=== PATIENT | male | born 1940 | race Caucasian/White ===

== ENCOUNTER 2021-06-24 12:44 | Emergency (ER) | payer MEDICARE, SELFPAY ==
[2021-06-24 12:45] VITALS: BP 165/77; PULSE 101; RESP 16; TEMP 36.6; O2SAT 96; BMI 27.9
--- NOTE | 2021-06-24 13:02 | EDS_ITS ---
HPI History of Present Illness Chief Complaint: Constipation Informant: patient Narrative Narrative: 80-year-old male presenting to the emergency department with a chief complaint of constipation. Patient states its been 2 months since his last bowel movement but then he said maybe a week and a half he is also said 4 days so is difficult to ascertain exactly how long he is gone without a bowel movement. He states he is also having difficulty urinating today. He states he feels like he needs to go but nothing is coming out. He denies any fevers. He states he is passing very little gas. He feels slightly bloated he had Covid last month and his appetite has improved but not back to his baseline. Family also notes that he is not drinking that much fluid [facility] Medical History (Updated 06/24/21 @ 14:[address] Sandro Gordillo DO) Chronic cough Dyspnea HLD (hyperlipidemia) Kidney stone Rheumatoid arthritis Right-sided chest pain Seasonal allergies Home Medications albuterol sulfate 90 mcg/actuation aerosol inhaler 2 puff INHALATION Q6H PRN #1 device 09/16/19 [Rx Last Taken Unknown] magnesium citrate 300 ml PO X1 PRN #3 bottle 06/24/21 [Rx Last Taken Unknown] Allergy/AdvReac Type Severity Reaction Status Date / Time erythromycin base Allergy abdominal Verified 06/24/21 12:49 pain atorvastatin AdvReac myalgias Verified 06/24/21 12:49 ciprofloxacin [From Cipro] AdvReac Rash Verified 06/24/21 12:49 doxycycline AdvReac Rash Verified 06/24/21 12:49 Sulfa (Sulfonamide AdvReac Rash Verified 06/24/21 12:49 Antibiotics) Family History Mother Heart disease Sister Heart disease Hypertension Arthritis Father Heart disease Surgical History Open fracture of shoulder Social History housing: house current occupational status: retired Smoking Status: Never smoker caffeine: Yes what type of physical activity do you participate in: walking ROS ROS ED Constitutional Constitutional ED: Denies chills, fever(s) or weight loss Eyes Eyes: Denies change in vision or diplopia ENT ENT ED: Denies ear pain, rhinorrhea or sore throat Cardiovascular Cardiovascular: Denies chest pain, orthopnea, palpitations or racing heartbeat Respiratory/Chest Respiratory/Chest: Denies cough, dyspnea or orthopnea Gastrointestinal Gastrointestinal: Reports constipation; Denies abdominal pain, diarrhea, nausea or vomiting Genitourinary Genitourinary ED: Reports other Details: Decreased urination ; Denies dysuria, hematuria or urinary frequency Musculoskeletal Musculoskeletal: Denies arthralgias or myalgias Integumentary Denies abscess or rash Neurologic Neurologic: Denies headache(s) or weakness Psychiatric Psychiatric: Denies anxiety, depression, suicidal ideation or suicidal thoughts Endocrine Endocrinology: Denies polydipsia, polyphagia or polyuria Allergic/Immunologic Allergic/Immunologic ED: Denies mouth swelling, tongue swelling or urticaria EXAM Physical Exam Const Vital Signs: 06/24/21 12:45 Temperature 97.8 F Temperature Source Temporal Pulse Rate 101 H Respiratory Rate 16 Blood Pressure 165/77 H Blood Pressure Mean 106 Pulse Ox 96 Oxygen Delivery Method Room Air Positive well nourished and well developed General Appearance ED: well developed HEENT Reports normocephalic, head/scalp atraumatic, TM's clear and moist mucous membranes Negative for trauma Tympanic Membrane ED: Yes TM's clear Eyes PERRL and EOMs intact bilaterally Neck no lymphadenopathy, supple and no JVD Resp normal respiratory effort and clear to auscultation bilaterally Cardio regular rate, regular rhythm and no murmurs GI normal to inspection, nondistended, normoactive bowel sounds and non-tender Palpation: soft Back/Spine no CVA tenderness and normal ROM Thoracic Spine / Upper Back: Negative for paraspinal muscle tenderness Extremity normal to inspection General Extremety ED: Negative for edema General Extremity: Negative for edema Neuro oriented x3 and CN's II-XII intact bilaterally Sensorium / Orientation: alert Motor Exam: strength 5/5 throughout Psych mental status grossly normal Mood & Affect: Negative for depressed or tearful Skin no rashes or lesions noted and no wounds MDM MDM MDM Narrative Medical decision making narrative: BMP is normal with a creatinine 0.95. Urinalysis negative. He was able to fully empty his bladder per him. My interpretation of the plain films of the abdomen is increased stool consistent with constipation. Patient was given an enema with no production or stool. He has very active bowel sounds. I will have him use magnesium citrate until he does have a large bowel movement. Return if worsening or concerns Lab Data Attestation: I reviewed the patient's lab results. Labs: Laboratory Results - last 24 hr 06/24/21 06/24/21 13:10 13:55 Sodium 138 Potassium 4.2 Chloride 107 Carbon Dioxide 24.0 Anion Gap 7 BUN 14 Creatinine 0.95 Estim Creat Clear Calc 55.96 Est GFR (MDRD) Af Amer 98 Est GFR (MDRD) Non-Af 81 BUN/Creatinine Ratio 14.7 Glucose 112 H Calcium 8.9 Urine Color Yellow Urine Clarity Clear Urine pH 6.5 Ur Specific [place] 1.015 Urine Protein Negative Urine Glucose (UA) Normal Urine Ketones Negative Urine Occult Blood Negative Urine Nitrite Negative Urine Bilirubin Negative Urine Urobilinogen Normal Ur Leukocyte Esterase Negative Urine RBC 0 SEEN Urine WBC 0 SEEN Ur Squamous Epith Cells 0-5 SEEN Urine Bacteria 0 SEEN Urine Mucus 0 SEEN Radiography Diagnostic Testing: Clinical Impression(s) from Imaging Studies KUB X-Ray 06/24/21 13:22 IMPRESSION: Moderate stool in the colon which may represent constipation. at 1420 Reported and signed by: Patrick Sierra MD Electronically Signed: Patrick Sierra MD at 14:19 EDT Tel , Service support , Discharge Plan Triage Chief Complaint: Constipation ED Provider: Sandro Gordillo Dx/Rx/DC Orders Clinical Impression: Constipation Instructions: ED Constipation (Adult) Prescriptions: New magnesium citrate Solution 300 ml PO X1 PRN (Reason: Constipation) Qty: 3 RF: 0 No Action albuterol sulfate 90 mcg/actuation HFA aerosol inhaler 2 puff inhalation Q6H PRN (Reason: cough) Qty: 1 RF: 3 Primary Care Provider: Rupert Stein Referrals: Rupert Stein DO [Primary Care Provider] - 3-5 Days if not improving Disposition Disposition: Home, Self Care
[2021-06-24] MEDS: 0.9% Normal Saline 1,000 ML 1000 ML IV (13:13)
--- NOTE | 2021-06-24 13:22 | RAD_ITS ---
EXAM: XR ABDOMEN, 1 VIEW : 1940 CLINICAL INDICATION: constipation TECHNIQUE: Frontal supine view of the abdomen/pelvis. This report was created using [employer] report generation technology. COMPARISON: None. FINDINGS: LOWER THORAX: No acute pathology. GASTROINTESTINAL TRACT: There is moderate stool throughout the colon. Non-obstructive. No bowel or stomach distention. ORGANS: Unremarkable as visualized. No organomegaly. No abnormal calcifications. BONES/JOINTS: There are degenerative changes in the lumbar spine. SOFT TISSUES: No acute pathology. RAD/Abdomen Single View IMPRESSION: Moderate stool in the colon which may represent constipation. at 1420 Reported and signed by: Patrick Sierra MD Electronically Signed: Patrick Sierra MD at 14:19 EDT Tel , Service support ,
[2021-06-24 13:31] LABS: Anion Gap 7 (5-15); BUN 14 mg/dL (7-18); BUN/Creat Ratio 14.7 RATIO (10-20); Calcium,Total 8.9 mg/dL (8.5-10.1); Chloride 107 mmol/L (98-107); Creatinine, Serum 0.95 mg/dL (0.70-1.30); EST Glomerular Filtration Rate 81 mL/min (>60); Est Glom Filt Rate - Afr Amer 98 mL/min (>60); Estimated Creatinine Clearance 55.96 ml/min; Glucose 112 mg/dL (74-106); Potassium 4.2 mmol/L (3.5-5.1); Sodium Level 138 mmol/L (136-145)
[2021-06-24 14:00] LABS: Bacteria 0 SEEN /hpf (None Seen); Mucous, Urine 0 SEEN /hpf (<or=2+); Red Blood Cells-Urine 0 SEEN /hpf (0-5); White Blood Cells 0 SEEN /hpf (0-5)
[2021-06-24] MEDS: Fleet Enema 1 ML RC (14:00)
[2021-06-24 14:03] LABS: Color, Urine Yellow (Yellow); Glucose, Dipstick Normal (Normal); Ketone-Dipstick Negative (Negative); Leukocyte Esterase-Dipstick Negative /ul (Negative); Nitrite-Dipstick Negative (Negative); Occult Blood-Urine Negative /ul (Negative); Protein-Dipstick Negative (Negative); Specific Gravity, Urine 1.015 (1.002-1.030); Urine Bilirubin Dipstick Negative (Negative); Urine Clarity Clear (Clear); Urine Urobilinogen Normal (Normal); Urine pH 6.5 (5.0 - 8.0)
[2021-06-24 14:09] LABS: Squamous Epithelial Cells - UA 0-5 SEEN /hpf (0-5)
[2021-06-24 15:10] VITALS: RESP 18
== END 2021-06-24 15:11 | disposition home or self-care (01) ==
PROVIDERS: Emergency Provider Emergency Medicine; PCP Preventive Medicine Occupational Medicine
DX: K59.00 Constipation, unspecified (principal)
CPT/HCPCS: 74018; 80048; 81001; 96360; 96361; 99283; J7030

== ENCOUNTER 2021-12-13 12:23 | Observation (INO) | payer MEDICARE, OTHER, SELFPAY ==
[2021-12-13 12:24] VITALS: BP 163/72; PULSE 88; RESP 18; TEMP 36.7; O2SAT 97; BMI 26.1
--- NOTE | 2021-12-13 13:11 | CT_ITS ---
INDICATION: abdomianl pain, rectal bleeding EXAMINATION: CT ABDOMEN AND PELVIS WITH CONTRAST - CT Abdomen And Pelvis W/ Contrast Injection TECHNIQUE: Helically acquired images were obtained of the abdomen and pelvis following IV contrast. A radiation dose optimization technique was used for this scan. IV Contrast dosage and agent: 100 mL of ISOVUE-300. Oral contrast: None. COMPARISON: None. FINDINGS: LOWER CHEST: Subtle bilateral lower lobe dependent atelectatic changes. No cardiomegaly or pericardial effusion. LIVER: Homogeneous. No focal mass. GALLBLADDER AND BILIARY TREE: Surgical clips visualized in the gallbladder fossa. No intra- or extrahepatic biliary ductal dilation. PANCREAS: No focal cystic or solid mass. SPLEEN: Normal size without focal cystic or solid mass. ADRENAL GLANDS: No nodules. KIDNEYS AND URETERS: Normal renal size and position. No hydronephrosis. Mild prominence of the distal ureters more prominent in the distal right ureter this could be related to the esophagus demonstrates changes surrounding the ureter. PERITONEUM: No ascites or free air. No other fluid collection. BOWEL: No evidence of acute appendicitis. No stomach or bowel distension. Thickening of the wall of the distal rectosigmoid and rectum is visualized with stranding of the adjacent peritoneal fat planes, no evidence of localized collection is seen, differential diagnosis would include proctitis or acute diverticulitis, no evidence of collections no evidence of free air. Stranding of the presacral fat planes. LYMPH NODES: No enlarged mesenteric or retroperitoneal lymph nodes. VESSELS: Aorta is non-dilated. URINARY BLADDER: Irregularity and wall of the urinary bladder is visualized with suggestion of a right bladder wall diverticulum.. REPRODUCTIVE ORGANS: Prominent prostate gland demonstrating heterogeneous attenuation with areas of low attenuation and a coarse calcification. ABDOMINAL WALL: No discrete abdominal or pelvic wall hernia. BONES: Degenerative bone changes. No lytic or blastic abnormality. CT/Abdomen/Pelvis W IV Cont ONLY IMPRESSION: Thickening of the wall of the distal rectosigmoid and rectum with stranding of the adjacent fat planes, would recommend clinical correlation for Proctitis. Stranding of the perirectal and presacral fat planes but no evidence of drainable collection is seen. Prominence of the prostate gland demonstrating heterogeneous attenuation and focal areas of low attenuation would recommend further evaluation. Electronically Signed: David Arana MD at 15:00 EDT ,
[2021-12-13] MEDS: 0.9% Normal Saline 1,000 ML 125 ML IV (13:30)
[2021-12-13 13:43] LABS: Absolute Lymphocyte Count 0.97 X10^3/uL (0.83-4.51); Absolute Neutrophil Count 8.6 X10^3/uL (2.0-7.7); Basophil# 0.03 X10^3/uL; Basophil% 0.3 % (0-1); Eosinophil# 0.08 X10^3/uL; Eosinophils% 0.8 % (0-5); Hematocrit 37.6 % (40-54); Hemoglobin 12.3 g/dL (13.0-16.5); Lymphocyte # 0.97 X10^3/ul (0.83-4.51); Lymphocyte % 9.2 % (19-41); Mean Corp Hgb Conc 32.7 g/dL (32-36); Mean Corpuscular Hgb 31.2 pg (27.0-32.0); Mean Corpuscular Volume 95.4 fL (80-94); Mean Platelet Vol. 9.7 fl (6.2-12.0); Monocyte# 0.76 X10^3/uL; Monocyte% 7.2 % (0-10); NRBC Flagged by Analyzer 0 % (0-5); Neutrophil # 8.61 X10^3/uL (2.7-7.7); Neutrophil % 81.8 % (47-70); Platelet Count 149 K/mm3 (150-450); RBC Distribution Width CV 13.2 % (11.6-14.6); Red Blood Count 3.94 M/mm3 (4.6-6.2); White Blood Count 10.5 K/mm3 (4.4-11.0)
[2021-12-13 13:51] LABS: Mucous, Urine 0 SEEN /hpf (<or=2+); Squamous Epithelial Cells - UA 0 SEEN /hpf (0-5)
[2021-12-13 13:55] LABS: Glucose, Dipstick Normal (Normal); Leukocyte Esterase-Dipstick 100 /ul (Negative); Nitrite-Dipstick Negative (Negative); Occult Blood-Urine 10 /ul (Negative); Protein-Dipstick 15 mg/dl (Negative); Specific Gravity, Urine 1.025 (1.002-1.030); Urine Bilirubin Dipstick Negative (Negative); Urine Clarity Clear (Clear); Urine Urobilinogen Normal (Normal)
[2021-12-13 13:58] LABS: Ketone-Dipstick 150 mg/dl (Negative)
[2021-12-13 14:01] LABS: AST(SGOT) 22 U/L (15-37); Alanine Aminotransfer ALT/SGPT 24 U/L (16-61); Albumin, Serum 3.6 g/dL (3.2-5.0); Alkaline Phosphatase 60 U/L (45-117); Anion Gap 4 (5-15); BUN 16 mg/dL (7-18); BUN/Creat Ratio 15.4 RATIO (10-20); Calcium,Total 8.9 mg/dL (8.5-10.1); Chloride 106 mmol/L (98-107); Creatinine, Serum 1.04 mg/dL (0.70-1.30); EST Glomerular Filtration Rate 73 mL/min (>60); Est Glom Filt Rate - Afr Amer 88 mL/min (>60); Estimated Creatinine Clearance 50.27 ml/min; Globulin 3.7 g/dL (2.2-4.2); Glucose 109 mg/dL (74-106); Potassium 4.1 mmol/L (3.5-5.1); Protein, Total 7.3 g/dL (6.4-8.2); Sodium Level 138 mmol/L (136-145)
[2021-12-13 14:01] LABS: Color, Urine Yellow (Yellow)
[2021-12-13 14:04] LABS: Bacteria 2+ /hpf (None Seen); Red Blood Cells-Urine 0-5 SEEN /hpf (0-5); White Blood Cells 0-5 SEEN /hpf (0-5)
--- NOTE | 2021-12-13 14:10 | ED.VIS.GI ---
HPI HPI - GI History of Present Illness Chief Complaint: Constipation Informant: patient and family Narrative Narrative: Patient is an 81-year-old male presenting for bright red blood per rectum. Notes that earlier this week he felt like he needed to have a bowel movement and went a whole day without having 1. He went to [facility] where he received an enema and felt better. He was told he had a fecal impaction. He had a bowel movement the day before. He had results with the enema. He states he did not have any testing or imaging done at that time. The next day started feel more miserable and started having what appeared to be bleeding from his rectum. He describes it as pasty, jellylike and purple/maroon. He has continued to have leaking from his rectum into his underwear even when he does not have a bowel movement. States when does sit on the toilet there is red in the toilet. Is feeling lightheaded today. Does not have a history of rectal bleeding. Has had no colonoscopy or GI evaluation in the past. Takes daily Metamucil and started taking MiraLAX last night. Denies eating anything red such as beets or blueberries. Is not on any blood thinners. Denies any urinary symptoms. [facility] Medical History (Updated 12/13/21 @ 16:[address] Wendy Olguin DO) Chronic cough Dyspnea HLD (hyperlipidemia) Kidney stone Rheumatoid arthritis Right-sided chest pain Seasonal allergies Home Medications NK 12/13/21 [History Last Taken Unknown] Allergy/AdvReac Type Severity Reaction Status Date / Time erythromycin base Allergy abdominal Verified 12/13/21 12:26 pain atorvastatin AdvReac myalgias Verified 12/13/21 12:26 ciprofloxacin [From Cipro] AdvReac Rash Verified 12/13/21 12:26 doxycycline AdvReac Rash Verified 12/13/21 12:26 Sulfa (Sulfonamide AdvReac Rash Verified 12/13/21 12:26 Antibiotics) Family History Mother Heart disease Sister Heart disease Hypertension Arthritis Father Heart disease Surgical History Open fracture of shoulder Social History housing: house current occupational status: retired Smoking Status: Never smoker caffeine: Yes what type of physical activity do you participate in: walking ROS ROS ED Constitutional Constitutional ED: Reports other Details: lightheaded ; Denies chills or fever(s) ENT ENT ED: Denies rhinorrhea or sore throat Cardiovascular Cardiovascular: Denies chest pain Respiratory/Chest Respiratory/Chest: Denies cough or dyspnea Gastrointestinal Gastrointestinal: Reports abdominal pain, constipation and melena; Denies nausea or vomiting Genitourinary Genitourinary ED: Denies dysuria or hematuria Musculoskeletal Musculoskeletal: Denies arthralgias or myalgias Integumentary Denies rash Neurologic Neurologic: Denies headache(s) or weakness Psychiatric Psychiatric: Denies depression Hematologic/Lymphatic Hematologic/Lymphatic: Denies easy bleeding or easy bruising EXAM Physical Exam Const Vital Signs: 12/13/21 12:24 12/13/21 14:41 Temperature 98.1 F Temperature Source Temporal Pulse Rate 88 81 Respiratory Rate 18 23 H Blood Pressure 163/72 H 132/90 H Blood Pressure Mean 102 104 Pulse Ox 97 100 Oxygen Delivery Method Room Air Room Air Positive well nourished and well developed General Appearance ED: well developed and NAD; Negative for pallor HEENT normocephalic and atraumatic Eyes PERRL and EOMs intact bilaterally Neck supple Resp normal respiratory effort and clear to auscultation bilaterally Cardio regular rate, regular rhythm and no murmurs GI GI Narrative: Bright red blood on rectal exam. No significant tenderness on rectal exam. No mass appreciated. Inspection: abdominal distention Palpation: soft and tender LLQ, RLQ and suprapubic; Negative for guarding or rigid Back/Spine no CVA tenderness Extremity full ROM General Extremety ED: Negative for edema General Extremity: Negative for edema Neuro Sensorium / Orientation: alert, oriented to person, oriented to place and oriented to time Motor Exam: Negative for general weakness Psych mental status grossly normal Skin General Skin Exam: Negative for pallor Lesions: no lesions Rashes: no rashes MDM MDM MDM Narrative Medical decision making narrative: Patient evaluated for abdominal discomfort and rectal bleeding. On exam he does have bright red blood per rectum. No tenderness on rectal exam. He did have enema 2 days ago so not sure if that was the cause of his bleeding. CT does show inflammation around the rectum but no discrete fluid collection consistent with abscess. White count is normal. Patient has never had any history of prostate cancer or a colonoscopy. Patient be admitted for evaluation of his rectal bleeding and abnormal CT findings. Patient was initially discussed with Dr. Valentine who will see him. Lab Data Attestation: I reviewed the patient's lab results. Labs: Laboratory Results - last 24 hr 12/13/21 12/13/21 12/13/21 13:25 13:25 13:25 WBC 10.5 RBC 3.94 L Hgb 12.3 L Hct 37.6 L MCV 95.4 H MCH 31.2 MCHC 32.7 RDW Std Deviation 47.0 H RDW Coeff of Casandra 13.2 Plt Count 149 L MPV 9.7 Immature Gran % (Auto) 0.700 Neut % (Auto) 81.8 H Lymph % (Auto) 9.2 L [place] % (Auto) 7.2 Eos % (Auto) 0.8 Baso % (Auto) 0.3 Absolute Neuts (auto) 8.6 H Absolute Lymphs (auto) 0.97 Nucleated RBC % 0 Sodium 138 Potassium 4.1 Chloride 106 Carbon Dioxide 28.0 Anion Gap 4 L BUN 16 Creatinine 1.04 Estim Creat Clear Calc 50.27 Est GFR (MDRD) Af Amer 88 Est GFR (MDRD) Non-Af 73 BUN/Creatinine Ratio 15.4 Glucose 109 H Lactic Acid 1.0 Calcium 8.9 Total Bilirubin 0.60 AST 22 ALT 24 Alkaline Phosphatase 60 Total Protein 7.3 Albumin 3.6 Globulin 3.7 Albumin/Globulin Ratio 1.0 Urine Color Urine Clarity Urine pH Ur Specific [place] Urine Protein Urine Glucose (UA) Urine Ketones Urine Occult Blood Urine Nitrite Urine Bilirubin Urine Urobilinogen Ur Leukocyte Esterase Urine RBC Urine WBC Ur Squamous Epith Cells Urine Bacteria Urine Mucus 12/13/21 13:40 WBC RBC Hgb Hct MCV MCH MCHC RDW Std Deviation RDW Coeff of Casandra Plt Count MPV Immature Gran % (Auto) Neut % (Auto) Lymph % (Auto) [place] % (Auto) Eos % (Auto) Baso % (Auto) Absolute Neuts (auto) Absolute Lymphs (auto) Nucleated RBC % Sodium Potassium Chloride Carbon Dioxide Anion Gap BUN Creatinine Estim Creat Clear Calc Est GFR (MDRD) Af Amer Est GFR (MDRD) Non-Af BUN/Creatinine Ratio Glucose Lactic Acid Calcium Total Bilirubin AST ALT Alkaline Phosphatase Total Protein Albumin Globulin Albumin/Globulin Ratio Urine Color Yellow Urine Clarity Clear Urine pH 6.0 Ur Specific [place] 1.025 Urine Protein 15 H Urine Glucose (UA) Normal Urine Ketones 150 A* Urine Occult Blood 10 H Urine Nitrite Negative Urine Bilirubin Negative Urine Urobilinogen Normal Ur Leukocyte Esterase 100 H Urine RBC 0-5 SEEN Urine WBC 0-5 SEEN Ur Squamous Epith Cells 0 SEEN Urine Bacteria 2+ Urine Mucus 0 SEEN Radiography Diagnostic Testing: Clinical Impression(s) from Imaging Studies Abdomen/Pelvis CT 12/13/21 13:11 IMPRESSION: Thickening of the wall of the distal rectosigmoid and rectum with stranding of the adjacent fat planes, would recommend clinical correlation for Proctitis. Stranding of the perirectal and presacral fat planes but no evidence of drainable collection is seen. Prominence of the prostate gland demonstrating heterogeneous attenuation and focal areas of low attenuation would recommend further evaluation. Electronically Signed: David Arana MD at 15:00 EDT Reading Location ID and State: [facility] / [place] Tel , Service support , Discharge Plan Triage Chief Complaint: Constipation Other Complaint: General Illness ED Provider: Wendy Olguin Dx/Rx/DC Orders Clinical Impression: BRBPR (bright red blood per rectum), Acute proctitis, Dehydration, Anemia Primary Care Provider: Rupert Stein Disposition Disposition: Acute Care Hospital [facility]
[2021-12-13 14:41] VITALS: BP 132/90; PULSE 81; RESP 23; O2SAT 100
[2021-12-13 15:53] VITALS: BP 154/80; PULSE 72; RESP 18; TEMP 36.8; O2SAT 97
--- NOTE | 2021-12-13 16:30 | HP.PCM.HOS_ITS ---
Documented by User: Cora Jones NP, LVN [facility] 12/13/21 16:42 HPI - General General Date of Admission: 12/13/21 HPI Narrative PIPPA TOLEDO, is a 81 M who presents to the emergency room due to rectal bleeding. Patient states he has had constipation problems since around May. Patient states on Friday night he went to an outside emergency room and was given an enema. He states he was able to have a bowel movement after his enema however since then has had rectal bleeding. He states he placed paper towel in his underwear as he is having rectal bleeding even without bowel movement. He denies abdominal pain. Denies nausea, vomiting. He states he has never had a colonoscopy and denies history of hemorrhoids or rectal bleeding in the past. He denies any daily medications and denies significant past medical history. States he still works and is typically active and healthy. FORMERLY [facility], [facility] Medical History (Updated 12/13/21 @ 16:[address] Wendy Olguin, DO) Chronic cough Dyspnea HLD (hyperlipidemia) Kidney stone Rheumatoid arthritis Right-sided chest pain Seasonal allergies Home Medications NK 12/13/21 [History Last Taken Unknown] Allergy/AdvReac Type Severity Reaction Status Date / Time erythromycin base Allergy abdominal Verified 12/13/21 12:26 pain atorvastatin AdvReac myalgias Verified 12/13/21 12:26 ciprofloxacin [From Cipro] AdvReac Rash Verified 12/13/21 12:26 doxycycline AdvReac Rash Verified 12/13/21 12:26 Sulfa (Sulfonamide AdvReac Rash Verified 12/13/21 12:26 Antibiotics) Family History Mother Heart disease Sister Heart disease Hypertension Arthritis Father Heart disease Surgical History Open fracture of shoulder Social History housing: house current occupational status: retired Smoking Status: Never smoker caffeine: Yes what type of physical activity do you participate in: walking ROS Constitutional Constitutional: Denies change in weight, chills, fatigue, fever(s) or weakness Cardiovascular Cardiovascular: Denies chest pain, edema, lightheadedness, palpitations or syncope Respiratory/Chest Respiratory/Chest: Denies cough, dyspnea, productive cough, shortness of breath at rest, shortness of breath with exertion or wheezing Gastrointestinal Gastrointestinal: Reports constipation and hematochezia; Denies abdominal pain, diarrhea, nausea or vomiting Genitourinary Genitourinary: Denies burning urination, difficulty urinating, dysuria, hematuria, urinary frequency, urinary incontinence or urinary urgency Musculoskeletal Musculoskeletal: Denies back pain, joint pain or muscle weakness Integumentary Integumentary: Denies erythema, lesions, rash or wounds Neurologic Neurologic: Denies abnormal speech, confusion, dizziness, focal weakness, numbness, paresthesias, seizure-like activity or syncope Psychiatric Psychiatric: Denies anxiety or depression Hematologic/Lymphatic Hematologic/Lymphatic: Denies anemia, easy bleeding or easy bruising Allergic/Immunologic Allergic/Immunologic: Denies hives or asthma Vital Signs Vital Signs Vital Signs: 12/13/21 12:24 12/13/21 14:41 12/13/21 15:53 Temperature 98.1 F 98.3 F Temperature Source Temporal Oral Pulse Rate 88 81 72 Respiratory Rate 18 23 H 18 Blood Pressure 163/72 H 132/90 H 154/80 H Blood Pressure Mean 102 104 104 Pulse Ox 97 100 97 Oxygen Delivery Method Room Air Room Air Room Air Weight Weight: 162 lb Body Mass Index (BMI) 26.1 Physical Exam Const alert, oriented x3 and no apparent distress Orientation / Consciousness: awake, oriented to person, oriented to place and oriented to time HEENT normocephalic and moist oral mucous membranes Eyes PERRL, EOMs intact bilaterally and conjunctivae normal Neck no lymphadenopathy Resp normal respiratory effort and clear to auscultation bilaterally Cardio regular rate, regular rhythm and no murmurs Peripheral Pulses: pulses 2+ throughout GI normal to inspection, nondistended, normoactive bowel sounds, non-tender and non-distended Extremity normal to inspection Skin no rashes or lesions noted Lesions: no lesions Rashes: no rashes Trauma: no lacerations or abrasions Neuro CN's II-XII intact bilaterally, no focal motor deficits, no sensory deficits noted and deep tendon reflexes 2+ bilaterally Psych mental status grossly normal and affect normal Results Lab / Micro Data Result Diagrams: 12/13/21 13:25 12/13/21 13:25 Labs: Laboratory Results - last 24 hr 12/13/21 13:25: WBC 10.5, RBC 3.94 L, Hgb 12.3 L, Hct 37.6 L, MCV 95.4 H, MCH 31.2, MCHC 32.7, RDW Std Deviation 47.0 H, RDW Coeff of Casandra 13.2, Plt Count 149 L, MPV 9.7, Immature Gran % (Auto) 0.700, Neut % (Auto) 81.8 H, Lymph % (Auto) 9.2 L, [place] % (Auto) 7.2, Eos % (Auto) 0.8, Baso % (Auto) 0.3, Absolute Neuts (auto) 8.6 H, Absolute Lymphs (auto) 0.97, Nucleated RBC % 0 12/13/21 13:25: Sodium 138, Potassium 4.1, Chloride 106, Carbon Dioxide 28.0, Anion Gap 4 L, BUN 16, Creatinine 1.04, Estim Creat Clear Calc 50.27, Est GFR (MDRD) Af Amer 88, Est GFR (MDRD) Non-Af 73, BUN/Creatinine Ratio 15.4, Glucose 109 H, Calcium 8.9, Total Bilirubin 0.60, AST 22, ALT 24, Alkaline Phosphatase 60, Total Protein 7.3, Albumin 3.6, Globulin 3.7, Albumin/Globulin Ratio 1.0 12/13/21 13:25: Lactic Acid 1.0 12/13/21 13:40: Urine Color Yellow, Urine Clarity Clear, Urine pH 6.0, Ur Specific [place] 1.025, Urine Protein 15 H, Urine Glucose (UA) Normal, Urine Ketones 150 A*, Urine Occult Blood 10 H, Urine Nitrite Negative, Urine Bilirubin Negative, Urine Urobilinogen Normal, Ur Leukocyte Esterase 100 H, Urine RBC 0-5 SEEN, Urine WBC 0-5 SEEN, Ur Squamous Epith Cells 0 SEEN, Urine Bacteria 2+, Urine Mucus 0 SEEN Micro: Microbiology 12/13/21 13:25 Stool Stool Occult Blood (YUKI) - Final Occult Blood Positive Radiology Impression Abdomen/Pelvis CT 12/13/21 13:11 IMPRESSION: Thickening of the wall of the distal rectosigmoid and rectum with stranding of the adjacent fat planes, would recommend clinical correlation for Proctitis. Stranding of the perirectal and presacral fat planes but no evidence of drainable collection is seen. Prominence of the prostate gland demonstrating heterogeneous attenuation and focal areas of low attenuation would recommend further evaluation. Electronically Signed: David Arana MD at 15:00 EDT Reading Location ID and State: [facility] / [place] Tel , Service support , Assessment & Plan Assessment/Plan (1) BRBPR (bright red blood per rectum): PLAN: 1. Lower GI bleed-hemoglobin stable. GI consulted. Plan for colonoscopy tomorrow. Bowel prep ordered. Trend H&H. 2. Hyperlipidemia- intolerance to statins. DVT prophylaxis- SCDs This patient was seen by Cora Jones NP-C under the supervision of Dr. Flynn. Time spent examining patient, reviewing data and subsequent management of care: 16 minutes Documented by User: Dr. Rupesh Flynn DO 12/13/21 20:51 HPI - General General Date of Admission: 12/13/21 [facility]LY [facility], [facility] Medical History (Updated 12/13/21 @ 16:[address] Wendy Olguin DO) Chronic cough Dyspnea HLD (hyperlipidemia) Kidney stone Rheumatoid arthritis Right-sided chest pain Seasonal allergies Home Medications NK 12/13/21 [History Last Taken Unknown] Allergy/AdvReac Type Severity Reaction Status Date / Time erythromycin base Allergy abdominal Verified 12/13/21 12:26 pain atorvastatin AdvReac myalgias Verified 12/13/21 12:26 ciprofloxacin [From Cipro] AdvReac Rash Verified 12/13/21 12:26 doxycycline AdvReac Rash Verified 12/13/21 12:26 Sulfa (Sulfonamide AdvReac Rash Verified 12/13/21 12:26 Antibiotics) Family History Mother Heart disease Sister Heart disease Hypertension Arthritis Father Heart disease Surgical History Open fracture of shoulder Social History housing: house current occupational status: retired Smoking Status: Never smoker caffeine: Yes what type of physical activity do you participate in: walking Results Lab / Micro Data Result Diagrams: 12/13/21 13:25 12/13/21 13:25 Charges/Coding Addendum Addendum: Patient was seen and examined independently of Cora Jones today, he came to the ER at [facility] today for evaluation of rectal bleeding that he has had over the past couple of days. Patient was seen in the emergency room at [facility] on 12/11/2021 with complaints of abdominal bloating and feeling like he had to have a bowel movement but could not. Patient was given an enema at that time and sent home. The next day he had some evidence of rectal bleeding that was not severe, today he saw bleeding again he came to the ER for evaluation. Patient denies any abdominal pain, he denies any nausea or vomiting. Patient has no complaints of any urinary symptoms such as urinary frequency, dysuria, or hesitancy. On examination he appeared in good health and spirits. Vital signs as documented. Skin warm and dry and without overt rashes. Neck without JVD, neck was supple, trachea midline, thyroid was normal. Lungs clear bilaterally, normal air movement was noted. Heart exam notable for regular rhythm, normal sounds and absence of murmurs, rubs or gallops. Abdomen unremarkable and without evidence of organomegaly, masses, or abdominal aortic enlargement. Bowel sounds are present, abdomen is not distended. Extremities nonedematous, no cyanosis was noted, no clubbing was noted. Neuro: Cranial nerves II through XII are grossly intact, no focal motor deficits were noted, sensation to light touch and pinprick intact, motor exam 5/5 throughout. Psych: Patient is alert and oriented x3, he does not appear anxious or depressed, he does not appear agitated. Labs were obtained, patient's hemoglobin was 12.3, chemistry profile was unremarkable, patient's urinalysis showed +2 bacteria, 0-5 RBCs, 0-5 WBCs, and negative urine nitrite. Patient has CT of the abdomen and pelvis which showed thickening of the wall of the distal rectal sigmoid and rectum with stranding of the adjacent planes. Impression: #1 bright red rectal bleeding-etiology unclear, patient was placed in observation status on MedSur, he will be prepped for a colonoscopy tomorrow, he will see gastroenterology in consultation and hopefully a colonoscopy will be able to be performed tomorrow. I do not believe the patient needs to be placed on any antibiotics at this time. #2 bacteriuria-patient has no evidence of a urinary tract infection at this time, I have elected not to place him on any antibiotics. I have reviewed Cora Jones's history and physical including her medical assessment and plan of care and with the above additions endorse it. Total clinical time spent by myself addressing the patient's medical issues, reviewing the patient's medical record, and collaborating with patient's care team: 40 minutes Visit Charges OBSV E&M: 75183 Initial observation care L2
[2021-12-13 16:38] VITALS: BMI 25.7
[2021-12-13 16:44] VITALS: BP 139/72; PULSE 67; RESP 16; TEMP 36.9; O2SAT 100
[2021-12-13] MEDS: 0.9% Saline Lock 10 ML Syringe IV (17:02)
[2021-12-13] MEDS: 0.9% Normal Saline 1,000 ML 75 ML IV (17:03)
[2021-12-13 17:12] VITALS: RESP 16; O2SAT 100
--- NOTE | 2021-12-13 17:25 | PCM.CONS.GEN ---
Assessment & Plan Assessment/Plan (1) BRBPR (bright red blood per rectum): PLAN: Inflammation of the rectum. The differential diagnosis could be proctitis secondary to ulcerative colitis. Also in the differential diagnosis could neoplasia. Stercoral ulcer syndrome, less likely infectious colitis. Patient undergo colonoscopy for evaluation of his lower GI tract. He was explained alternatives, benefits, standing bleeding, infection, sepsis, perforation, need for emergent and . ASA of 3. HPI Consult Data Date of Consult: 12/13/21 HPI Narrative HPI Narrative: PIPPA TOLEDO, is a 81 M who presents to the ED with lower GI bleeding. Patient says he is having new onset constipation over the last 6 months. He has tried stool softeners he has tried fiber therapy. He does not know if he has any history of diverticular disease. He does have an history of kidney stones and rheumatoid arthritis. He only takes Tylenol on a daily basis. He was taking something for his rheumatoid arthritis but he does not take anything now. In the ED he was mildly anemic with a hemoglobin of 12.3. He also was thrombocytopenic with a platelet count of 146. He has no history of cirrhosis. Patient will at . He does not take any nonsteroidals on a daily basis. He has no other bleeding issues. He does not bruise easily. At this time he denies any abdominal pain or cramping. He had a CT scan of the abdomen pelvis in the ED and it shows rectal wall thickening extending into the rectosigmoid junction. I was consulted for endoscopic evaluation and management of lower GI bleeding. FORMERLY [facility] Medical History (Updated 12/13/21 @ 16:[address] Wendy Olguin, ) Chronic cough Dyspnea HLD (hyperlipidemia) Kidney stone Rheumatoid arthritis Right-sided chest pain Seasonal allergies Home Medications NK 12/13/21 [History Last Taken Unknown] Allergy/AdvReac Type Severity Reaction Status Date / Time erythromycin base Allergy abdominal Verified 12/13/21 12:26 pain atorvastatin AdvReac myalgias Verified 12/13/21 12:26 ciprofloxacin [From Cipro] AdvReac Rash Verified 12/13/21 12:26 doxycycline AdvReac Rash Verified 12/13/21 12:26 Sulfa (Sulfonamide AdvReac Rash Verified 12/13/21 12:26 Antibiotics) Family History Mother Heart disease Sister Heart disease Hypertension Arthritis Father Heart disease Surgical History Open fracture of shoulder Social History housing: house current occupational status: retired Smoking Status: Never smoker caffeine: Yes what type of physical activity do you participate in: walking ROS Review of Systems ROS Unobtainable: other Constitutional Constitutional: Denies fatigue, fever(s), poor appetite, weight gain or weight loss ENT HEENT: Denies mouth lesions Cardiovascular Cardiovascular: Denies abdominal bloating, abdominal edema or abdominal pain Respiratory/Chest Respiratory/Chest: Denies change in mental status, change in phlegm color, chest congestion or chest tightness Gastrointestinal Gastrointestinal: Reports hematochezia and loose stools Genitourinary Genitourinary: Denies abdominal discomfort, burning urination or itching Musculoskeletal Musculoskeletal: Reports as per HPI; Denies muscle weakness or myalgias Integumentary Integumentary: Denies jaundice Neurologic Neurologic: Denies lack of coordination or weakness Psychiatric Psychiatric: Denies confusion, depression, memory loss, mood swings, paranoia or suicidal ideation Endocrine Endocrinology: Denies systems reviewed and no addt'l complaints, except as documented Hematologic/Lymphatic Hematologic/Lymphatic: Denies anemia, easy bleeding, easy bruising or lymphadenopathy Allergic/Immunologic Allergic/Immunologic: Denies systems reviewed and no addt'l complaints, except as documented Physical Exam Const alert General Appearance: cooperative Orientation / Consciousness: oriented to person HEENT hearing grossly normal bilaterally Head and Scalp: normal to inspection Face and Sinus: face symmetric Nose: external nose normal Mouth: oral and palatal mucosa normal Eyes conjunctivae normal General Eye: normal appearance of both eyes Neck full ROM General: normal visual inspection Lymph Lymphatic: no lymphadenopathy noted Chest inspection of chest normal and palpation of chest normal Chest: symmetrical chest wall rise Resp normal respiratory effort Effort and Inspection: able to speak in complete sentences Cardio regular rate GI non-distended Percussion: normal to percussion Rectal Exam: deferred Neuro Speech: speech normal Gait (Neuro): normal gait Lab / Micro Data Result Diagrams: 12/13/21 13:25 12/13/21 13:25 Labs: Laboratory Results - last 24 hr 12/13/21 13:25: WBC 10.5, RBC 3.94 L, Hgb 12.3 L, Hct 37.6 L, MCV 95.4 H, MCH 31.2, MCHC 32.7, RDW Std Deviation 47.0 H, RDW Coeff of [place] 13.2, Plt Count 149 L, MPV 9.7, Immature Gran % (Auto) 0.700, Neut % (Auto) 81.8 H, Lymph % (Auto) 9.2 L, [place] % (Auto) 7.2, Eos % (Auto) 0.8, Baso % (Auto) 0.3, Absolute Neuts (auto) 8.6 H, Absolute Lymphs (auto) 0.97, Nucleated RBC % 0 12/13/21 13:25: Sodium 138, Potassium 4.1, Chloride 106, Carbon Dioxide 28.0, Anion Gap 4 L, BUN 16, Creatinine 1.04, Estim Creat Clear Calc 50.27, Est GFR (MDRD) Af Amer 88, Est GFR (MDRD) Non-Af 73, BUN/Creatinine Ratio 15.4, Glucose 109 H, Calcium 8.9, Total Bilirubin 0.60, AST 22, ALT 24, Alkaline Phosphatase 60, Total Protein 7.3, Albumin 3.6, Globulin 3.7, Albumin/Globulin Ratio 1.0 12/13/21 13:25: Lactic Acid 1.0 12/13/21 13:40: Urine Color Yellow, Urine Clarity Clear, Urine pH 6.0, Ur Specific [place] 1.025, Urine Protein 15 H, Urine Glucose (UA) Normal, Urine Ketones 150 A*, Urine Occult Blood 10 H, Urine Nitrite Negative, Urine Bilirubin Negative, Urine Urobilinogen Normal, Ur Leukocyte Esterase 100 H, Urine RBC 0-5 SEEN, Urine WBC 0-5 SEEN, Ur Squamous Epith Cells 0 SEEN, Urine Bacteria 2+, Urine Mucus 0 SEEN Micro: Microbiology 12/13/21 13:25 Stool Stool Occult Blood (YUKI) - Final Occult Blood Positive Radiology Impression Abdomen/Pelvis CT 12/13/21 13:11 IMPRESSION: Thickening of the wall of the distal rectosigmoid and rectum with stranding of the adjacent fat planes, would recommend clinical correlation for Proctitis. Stranding of the perirectal and presacral fat planes but no evidence of drainable collection is seen. Prominence of the prostate gland demonstrating heterogeneous attenuation and focal areas of low attenuation would recommend further evaluation. Electronically Signed: David Arana MD at 15:00 EDT , Charges/Coding Visit Charges Inpatient E&M: 68856 Init Hosp L2
[2021-12-13] MEDS: Bisacodyl 5 MG Tablet 20 MG PO (18:39)
[2021-12-13] MEDS: Electrolyte Solution/Peg's 4000 ML PO (19:38)
[2021-12-13 20:56] LABS: Hematocrit 36.6 % (40-54); Hemoglobin 12.8 g/dL (13.0-16.5)
[2021-12-13 22:13] VITALS: BP 128/75; PULSE 70; RESP 16; TEMP 36.8; O2SAT 100
[2021-12-14] VITALS (8 sets, daily range): BP systolic 122–143; BP diastolic 50–66; PULSE 56–67; RESP 15–18; TEMP 36.4–36.9; O2SAT 95–100; BMI 25.7
--- NOTE | 2021-12-14 | IMM_PTH ---
PATIENT: PIPPA TOLEDO LOC: MS3 U#:[id number] AGE/SX: 81/M ROOM: AZ314 RE12/13/[address]: Dr. Toribio Lacy MD : 1940 BED: 1 DIS: 12/14/2021 SPEC #: [id number] RECD: 12/18/21 13:33 STATUS: TOMY REQ #: [id number] ALICIA: 12/14/21 00:[address]: Erik Valentine DEPT: IMMUNOHISTOCHEMISTRY RECD BY: Kaela Velásquez ENTERED: 12/18/21 13:34 SP TYPE: IMMUNO OTHR DR: MD Dr. Rupesh Pierre, DO Dr. Rupert Stein DO Tissues: Rectum, NOS Procedures: CK20 (add) CK8 (add) NEUROFIL (add) Pankeratin (initial) S-100 (add) PHYSICIAN & INSTITUTION [place] [phone] SPECIMEN INFORMATION: Tissue Source: Rectal proctitis biopsy Clinical Info: Bright red blood per rectum, lower GI bleed Specimen Number: [id number] CPT code: 44132, 68532 x4 METHODOLOGY: Deparaffinized sections of prefer/formalin-fixed tissue or PAP/DQ stained slides are incubated with monoclonal/polyclonal antibodies/oligonucleotide probes. Localization is made via biotin free immunoperoxidase method. Appropriate controls are performed and reacted as expected. Results on target cell population are indicated in the following table: RESULTS: ANTIBODY / CLONE RESULT AE1-3 (AE1/AE3/PCK26) positive (mucosal glands) CK8 (87hfsmC83) positive (mucosal glands) CK20 (KS20.8) positive (mucosal glands) S-100 (4C4.9) positive, in ganglion and neural elements Neurofil (2F11) positive, in ganglion and neural elements These tests were developed and their performance characteristics determined by [facility]. They may not have been cleared or approved by the U.S. Food and Drug Administration. The FDA has determined that such clearance or approval is not necessary. The above immunohistochemical/dualISH markers are ordered and reviewed by the Pathologist. INTERPRETATION: Rectal proctitis biopsy: Extensive ulceration. Negative for malignancy. VIVIAN:erica 12/19/2021
[2021-12-14] MEDS: 0.9% Normal Saline 1,000 ML 75 ML IV ×2 (05:04→13:32)
--- NOTE | 2021-12-14 10:27 | PCM.PN.HOSP ---
Documented by User: Cora Jones FOOTWEAR PRODUCTION MACHINE OPERATOR, FOOTWEAR PRODUCTION MACHINE OPERATOR-C 12/14/21 10:32 Subjective Subjective Patient seen and examined. Denies further blood per rectum or blood in stool during bowel prep. To undergo colonoscopy. Denies abdominal pain, nausea, vomiting. Denies other symptoms or complaints. Await colonoscopy findings. Objective Data Objective Data Vital Signs: Vital Signs Temp Pulse Resp BP Pulse Ox 98.0 F 67 15 122/66 H 97 12/14/21 08:50 12/14/21 08:50 12/14/21 08:50 12/14/21 08:50 12/14/21 08:50 Oxygen Delivery Method Room Air Weight: 159 lb Body Mass Index (BMI) 25.7 Intake & Output: Intake and Output for Last 24 Hours 12/12/21 12/13/21 12/14/21 23:59 23:59 23:59 Intake Total 788.75 / 788.75 901.25 / 901.25 Balance 788.75 / 788.75 901.25 / 901.25 Lab / Micro Data Result Diagrams: 12/13/21 20:49 12/13/21 13:25 Labs: Laboratory Results - last 24 hr 12/13/21 13:25: WBC 10.5, RBC 3.94 L, Hgb 12.3 L, Hct 37.6 L, MCV 95.4 H, MCH 31.2, MCHC 32.7, RDW Std Deviation 47.0 H, RDW Coeff of Casandra 13.2, Plt Count 149 L, MPV 9.7, Immature Gran % (Auto) 0.700, Neut % (Auto) 81.8 H, Lymph % (Auto) 9.2 L, [place] % (Auto) 7.2, Eos % (Auto) 0.8, Baso % (Auto) 0.3, Absolute Neuts (auto) 8.6 H, Absolute Lymphs (auto) 0.97, Nucleated RBC % 0 12/13/21 13:25: Sodium 138, Potassium 4.1, Chloride 106, Carbon Dioxide 28.0, Anion Gap 4 L, BUN 16, Creatinine 1.04, Estim Creat Clear Calc 50.27, Est GFR (MDRD) Af Amer 88, Est GFR (MDRD) Non-Af 73, BUN/Creatinine Ratio 15.4, Glucose 109 H, Calcium 8.9, Total Bilirubin 0.60, AST 22, ALT 24, Alkaline Phosphatase 60, Total Protein 7.3, Albumin 3.6, Globulin 3.7, Albumin/Globulin Ratio 1.0 12/13/21 13:25: Lactic Acid 1.0 12/13/21 13:40: Urine Color Yellow, Urine Clarity Clear, Urine pH 6.0, Ur Specific [place] 1.025, Urine Protein 15 H, Urine Glucose (UA) Normal, Urine Ketones 150 A*, Urine Occult Blood 10 H, Urine Nitrite Negative, Urine Bilirubin Negative, Urine Urobilinogen Normal, Ur Leukocyte Esterase 100 H, Urine RBC 0-5 SEEN, Urine WBC 0-5 SEEN, Ur Squamous Epith Cells 0 SEEN, Urine Bacteria 2+, Urine Mucus 0 SEEN 12/13/21 20:49: Hgb 12.8 L, Hct 36.6 L Micro: Microbiology 12/14/21 09:20 Nasal Secretion SARS-CoV-2 Antigen (Rapid) - Final 12/13/21 13:25 Stool Stool Occult Blood (YUKI) - Final Occult Blood Positive Radiography Diagnostic Testing: Radiology Impression Abdomen/Pelvis CT 12/13/21 13:11 IMPRESSION: Thickening of the wall of the distal rectosigmoid and rectum with stranding of the adjacent fat planes, would recommend clinical correlation for Proctitis. Stranding of the perirectal and presacral fat planes but no evidence of drainable collection is seen. Prominence of the prostate gland demonstrating heterogeneous attenuation and focal areas of low attenuation would recommend further evaluation. Electronically Signed: David Arana MD at 15:00 EDT Reading Location ID and State: [facility] / [place] Tel , Service support , Physical Exam Const alert, oriented x3 and no apparent distress Orientation / Consciousness: awake, oriented to person, oriented to place and oriented to time HEENT normocephalic and moist oral mucous membranes Eyes PERRL, EOMs intact bilaterally and conjunctivae normal Neck no lymphadenopathy Resp normal respiratory effort and clear to auscultation bilaterally Cardio regular rate, regular rhythm and no murmurs Peripheral Pulses: pulses 2+ throughout GI normal to inspection, nondistended, normoactive bowel sounds, non-tender and non-distended Extremity normal to inspection Skin no rashes or lesions noted Lesions: no lesions Rashes: no rashes Trauma: no lacerations or abrasions Neuro CN's II-XII intact bilaterally, no focal motor deficits, no sensory deficits noted and deep tendon reflexes 2+ bilaterally Psych mental status grossly normal and affect normal Assessment & Plan Assessment/Plan (1) BRBPR (bright red blood per rectum): PLAN: 1. Lower GI bleed/bright red blood per rectum-hemoglobin stable. GI consulted. Plan for colonoscopy. Further disposition pending colonoscopy results. 2. Hyperlipidemia- intolerance to statins. DVT prophylaxis- SCDs This patient was seen by DOTTIE Otero under the supervision of Dr. Lacy. Documented by User: Dr. Toribio Lacy MD 12/14/21 10:43 Objective Data Lab / Micro Data Result Diagrams: 12/13/21 20:49 12/13/21 13:25 Assessment & Plan Addt'l Comments This patient was seen in conjunction with DOTTIE Otreo . I have independently interviewed and examined the patient and reviewed pertinent historical, laboratory, and other data. Please refer to DOTTIE Otero note for details of this patient's presentation, findings, and recommendations. I have reviewed DOTTIE Otero note and concur with documented findings. In brief, patient is an 81-year-old gentleman in relatively good health for his age who presented with melenic stools with abdominal bloating. CT of the abdomen obtained on admission was consistent with proctitis. Admitted to regular nursing floor for further management Physical Examination: GENERAL: cooperative HEENT: Atraumatic; EYES; Anicteric, Normal Conjunctiva NECK; supple, normal thyroid, RESPIRATORY: Diminished to auscultation CARDIOVASCULAR: Regular S1 S2, GI: soft, normoactive bowel sounds, : No Renal angle tenderness; EXTREMITIES: No edema, no clubbing, MUSCULOSKELETAL: no muscle wasting NEURO: Awake; no lateralizing signs. SKIN: No Rash PSYCH; Flat affect Assessment: 1. Lower GI bleed 2. Proctitis 3. Hearing impairment 4. Advanced age Recommendations: 1. I have discussed the results of my overview and impressions with the patient 2. Options for management were reviewed Total time spent by myself and the advanced practice practitioner evaluating patient, reviewing labs, subsequent management decisions, discussion with patient as well as other providers 40 minutes ( 25 of which was spent by myself) Charges/Coding Visit Charges Inpatient E&M: 34463 Subs Hosp L2
--- NOTE | 2021-12-14 11:30 | NURSING ---
1050-pt off unit via bed for scheduled procedure
--- NOTE | 2021-12-14 12:21 | OP.COLON_ITS ---
Patient Name: Hany Olvera Procedure Date: 12/14/2021 11:36 AM Date of : 1940 Age: 81 Procedure: Colonoscopy Indications: Hematochezia Providers: Erik Valentine DO Medicines: Sedation Required Anesthesia Staff Assistance Patient Profile: This is an 81 year old male. Refer to note in patient chart for documentation of history and physical. Last Colonoscopy: none. The patient's first colonoscopy is today. Complications: No immediate complications. Procedure: Pre-Anesthesia Assessment: - Prior to the procedure, a History and Physical was performed, and patient medications and allergies were reviewed. The patient is competent. The risks and benefits of the procedure and the sedation options and risks were discussed with the patient. All questions were answered and informed consent was obtained. Patient identification and proposed procedure were verified by the physician in the pre-procedure area. Mental Status Examination: alert and oriented. Airway Examination: normal oropharyngeal airway and neck mobility. Respiratory Examination: clear to auscultation. CV Examination: normal. Prophylactic Antibiotics: The patient does not require prophylactic antibiotics. Prior Anticoagulants: The patient has taken no previous anticoagulant or antiplatelet agents. ASA Grade Assessment: II - A patient with mild systemic disease. After reviewing the risks and benefits, the patient was deemed in satisfactory condition to undergo the procedure. The anesthesia plan was to use moderate sedation / analgesia (conscious sedation). Immediately prior to administration of medications, the patient was re-assessed for adequacy to receive sedatives. The heart rate, respiratory rate, oxygen saturations, blood pressure, adequacy of pulmonary ventilation, and response to care were monitored throughout the procedure. The physical status of the patient was re-assessed after the procedure. After I obtained informed consent, the scope was passed under direct vision. Throughout the procedure, the patient's blood pressure, pulse, and oxygen saturations were monitored continuously. The pediatric colonoscope was introduced through the anus and advanced to the terminal ileum. The colonoscopy was performed without difficulty. The patient tolerated the procedure well. The quality of the bowel preparation was fair. Moderate Sedation: Moderate (conscious) sedation was administered by the endoscopy nurse and supervised by the endoscopist. The patient's oxygen saturation, heart rate, blood pressure and response to care were monitored. Total physician intraservice time was 15 minutes. Scope In: 11:49:07 AM Scope Withdrawal Time 0 hours 8 minutes 48 seconds Scope Out: 12:02:58 PM Total Procedure Duration Time 0 hours 13 minutes 51 seconds Findings: The perianal and digital rectal examinations were normal. A continuous area of nonbleeding ulcerated mucosa with stigmata of recent bleeding was present in the rectum. Biopsies were taken with a cold forceps for histology. Verification of patient identification for the specimen was done. Estimated blood loss was minimal. Multiple small and large-mouthed diverticula were found in the recto-sigmoid colon, sigmoid colon and descending colon. There was no evidence of diverticular bleeding. The terminal ileum appeared normal. Impression: - Preparation of the colon was fair. - Mucosal ulceration. Biopsied. - Moderate diverticulosis in the recto-sigmoid colon, in the sigmoid colon and in the descending colon. There was no evidence of diverticular bleeding. - The examined portion of the ileum was normal. Recommendation: - [facility] care. - Advance diet as tolerated. - CT angiogram to rule out thrombus -Cipro 500mg once a day x 10 days, Flagyl 500mg BID x 10 days -Mesalamine 800mg BID x 8 weeks - Await pathology results. - Repeat colonoscopy in 3 months for surveillance based on pathology results. - Continue present medications. Procedure Code(s): --- Professional --- 90744, Colonoscopy, flexible; with biopsy, single or multiple G0500, Moderate sedation services provided by the same physician or other qualified health district manager primary care sales performing a gastrointestinal endoscopic service that sedation supports, requiring the presence of an independent trained observer to assist in the monitoring of the patient's level of consciousness and physiological status; initial 15 minutes of intra-service time; patient age 5 years or older (additional time may be reported with 83481, as appropriate) CPT copyright 2017 [employer]. All rights reserved. The codes documented in this report are preliminary and upon wrapper sorter review may be revised to meet current compliance requirements. Erik Valentine DO 12/14/2021 12:21:14 PM This report has been signed electronically. Number of Addenda: 1 Note Initiated On: 12/14/2021 11:36 AM Addendum Number: 1 Addendum Date: 05/23/2022 6:27:56 AM MAC was used as sedation for this procedure. Erik Valentine DO 05/23/2022 6:28:00 AM This report has been signed electronically.
--- NOTE | 2021-12-14 12:22 | OP.CCLET_ITS ---
05/23/2022 Rupert Stein [address] [place] [address] Re : Colonoscopy procedure for Hany Wade Dear Dr. Stein This procedure was performed on Tuesday, December 14, 2021. My impressions and recommendations are as follows: Impressions : - Preparation of the colon was fair. - Mucosal ulceration. Biopsied. - Moderate diverticulosis in the recto-sigmoid colon, in the sigmoid colon and in the descending colon. There was no evidence of diverticular bleeding. - The examined portion of the ileum was normal. Recommendations : - [facility] care. - Advance diet as tolerated. - CT angiogram to rule out thrombus -Cipro 500mg once a day x 10 days, Flagyl 500mg BID x 10 days -Mesalamine 800mg BID x 8 weeks - Await pathology results. - Repeat colonoscopy in 3 months for surveillance based on pathology results. - Continue present medications. My findings are described in the full procedure note, which is enclosed. If I can be of further assistance, please feel free to contact me at . Sincerely, Erik Valentine, 12/14/2021 12:21:14 PM This report has been signed electronically.
--- NOTE | 2021-12-14 13:00 | COLBX_PTH ---
PATIENT: PIPPA TOLEDO LOC: [facility] U#:[id number] AGE/SX: 81/M ROOM: IN314 RE12/13/[address]: Dr. Toribio Lacy MD : 1940 BED: 1 DIS: 12/14/2021 SPEC #: [id number] RECD: 12/14/21 16:33 STATUS: TOMY REQ #: [id number] ALICIA: 12/14/21 13:[address]: Erik Valentine DEPT: SURGICAL PATHOLOGY RECD BY: Violet Yi ENTERED: 12/17/21 08:36 SP TYPE: COLON BX OTHR DR: MD Dr. Rupesh Pierre, DO Dr. Rupert Stein DO Tissues: Rectum, NOS Procedures: Surgery Specimen Level IV Comments: @ Ordering doctor for SUIV edited from to @ by RGOOD at 12/17/21 1418 @ Submitting doctor edited from to @ by RGOOD at 12/17/21 1418 HEADER OPERATION: Colonoscopy (MAC) PRE-OP DIAGNOSIS: Bright red blood per rectum, lower GI bleed TISSUE SUBMITTED: Rectal proctitis biopsy MICROSCOPIC DIAGNOSIS Rectal biopsy: Fragments of colonic mucosa with extensive ulceration and associated acute and chronic inflammation and histiocytic infiltration. Negative for malignancy. See comment. VIVIAN:erica 12/18/2021 COMMENT Immunohistochemistry ([id number]) supports the above diagnosis. The findings may represent ischemic colitis. Correlation with clinical, endoscopic findings and appropriate follow up are necessary. Case has been reviewed in consultation with Dr. Fragoso who concurs with the above diagnosis. IDC:AM MICROSCOPIC DESCRIPTION Slides are reviewed. GROSS DESCRIPTION Received in fixative is one container labeled with the patient's name and designated rectal proctitis biopsy. The specimen consists of multiple irregular fragments of light guy soft tissue that in aggregate measure 1 x 0.5 x 0.1 cm. The specimen is totally submitted in one cassette. / VIVIAN:erica 12/17/2021 TC:2 CPT: 73997
--- NOTE | 2021-12-14 14:48 | CT_ITS ---
INDICATION: Colitis EXAMINATION: CTA CHEST, ABDOMEN AND PELVIS WITH CONTRAST - TECHNIQUE: A CTA of the chest, abdomen, and pelvis is obtained with sagittal and coronal reconstructed MIP views. Three-dimensional surface rendered sequence of the thoracic and abdominal aorta was obtained. A radiation dose optimization technique was used for this scan. 100 mL of Isovue-370. Oral contrast: None. COMPARISON: 12/13/2021 FINDINGS: CT CHEST: THORACIC AORTA: Minimal atheromatous disease, no aneurysmal changes or dissection. ABDOMINAL AORTA: No aneurysm or dissection. 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 The iliac arteries are unremarkable. LUNGS: Bilateral dependent changes without consolidations or pleural effusions. MEDIASTINUM: The thyroid gland is normal. No mediastinal or hilar adenopathy. HEART: Cardiomegaly. No pericardial effusion. CT ABDOMEN AND PELVIS: LIVER: The liver enhances homogeneously. No concerning masses identified. GALLBLADDER: Cholecystectomy. No abnormal biliary dilatation. SPLEEN: Normal. PANCREAS: No masses or inflammation. ADRENAL GLANDS: Normal. KIDNEYS AND URETERS: The kidneys both enhance appropriately. There are normal size and shape. No hydronephrosis or nephrolithiasis. No renal masses or cysts. STOMACH: Normal. SMALL BOWEL: No abnormal distention of the small bowel. MESENTERY: No mesenteric inflammation. No ascites. COLON: Stable colonic wall thickening involving the distal rectosigmoid colon with surrounding pericolonic fat stranding. The colon otherwise is normal. APPENDIX: The appendix is visualized and normal. IVC: Normal. RETROPERITONEUM: No retroperitoneal lymphadenopathy. PELVIC STRUCTURES: Normal bladder. SOFT TISSUES ABDOMEN: Small fat-containing umbilical hernia. SOFT TISSUE CHEST: Mild bilateral male gynecomastia. BONES: No acute or aggressive abnormality. 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 Otherwise no significant atheromatous changes of the thoracic or abdominal aorta, major branches. No acute pulmonary findings. Stable findings of colitis of the distal rectosigmoid colon. Electronically Signed: Sandip Fraire MD at 15:31 EDT ,
--- NOTE | 2021-12-14 15:00 | PCM.DC ---
Discharge Instructions Diet Discharge Diet: Light diet - advance as tolerated Activity Discharge Activity: Return to Normal Activity Dressing / Incision Call your doctor if you observe: Shortness of breath, Dizziness, Chest pain and - (further blood per rectum) Follow Up Care Test Results: Test results from this visit will be discussed in further detail at your follow-up appointment, if applicable. Discharge Plan Admission Admit Date/Time: 12/13/21 16:15 Primary Reason for Your Visit: Blood per rectum Attending Provider: Toribio Layc Primary Care Provider: Rupert Stein Discharge Orders/Prescriptions Prescriptions: New ciprofloxacin HCl 500 mg tablet 500 mg PO DAILY Qty: 10 RF: 0 metronidazole 500 mg tablet 500 mg PO Q12H 10 Days Qty: 20 RF: 0 mesalamine 400 mg capsule (with del rel tablets) 800 mg PO BID 56 Days Qty: 224 RF: 0 No Action NK RF: 0 Referrals / Follow Up: Erik Valentine DO [STAFF PHYSICIAN] - Within 2 Weeks Rupert Stein DO [Primary Care Provider] - In 1 Week Disposition Disposition (needs filled in before D/C Order can be placed): Home, Self Care
--- NOTE | 2021-12-14 15:13 | DS.PCM_ITS ---
Documented by User: Cora Jones NP, ACCOUNT SERVICES REPRESENTATIVE-C 12/14/21 15:54 Providers Date of Admission: 12/13/21 Date of Discharge: 12/14/21 Primary Care Physician: Dr. Rupert Stein, Consultations 12/13/21 16:32 Consult: Gastroenterology Routine Consulting Provider: [facility] Reason for Consult: rectal bleeding EMERGENT Consult: No MD Notified: Yes Date Notified: 12/13/21 Time Notified: 16:17 Method of Notification: Verbal Reason For Visit: RECTAL BLEEDING Diagnosis Discharge Diagnosis (1) BRBPR (bright red blood per rectum): Status: Acute Code(s): K62.5 - Hemorrhage of anus and rectum Medications at Discharge Home Medications NK 12/13/21 ciprofloxacin HCl 500 mg PO DAILY #10 tab 12/14/21 mesalamine 800 mg PO BID 56 Days #224 ea 12/14/21 metronidazole 500 mg PO Q12H 10 Days #20 tab 12/14/21 Hospital Course Operations None Procedures Colonoscopy Summary of Care Provided Hospital Course: Patient is an 81-year-old male admitted 12/13/2021 due to rectal bleeding. 1. Lower GI bleed/bright red blood per rectum-hemoglobin stable. GI consulted. Underwent colonoscopy which demonstrated mucosal ulceration which was biopsied, moderate diverticulosis in the rectosigmoid colon, in the sigmoid colon and in the descending colon. No evidence of diverticular bleeding. CTA of abdomen and pelvis completed to rule out thrombus, results pending and will be reviewed. If unremarkable, plan for discharge home with Cipro, Flagyl and mesalamine per GI recommendations. Follow-up with GI in 2 weeks for pathology results and plan for repeat colonoscopy in 3 months based on pathology results. 2. Hyperlipidemia- intolerance to statins. Physical Exam Const alert, oriented x3 and no apparent distress Orientation / Consciousness: awake, oriented to person, oriented to place and oriented to time HEENT normocephalic and moist oral mucous membranes Eyes PERRL, EOMs intact bilaterally and conjunctivae normal Neck no lymphadenopathy Resp normal respiratory effort and clear to auscultation bilaterally Cardio regular rate, regular rhythm and no murmurs Peripheral Pulses: pulses 2+ throughout GI normal to inspection, nondistended, normoactive bowel sounds, non-tender and non-distended Extremity normal to inspection Skin no rashes or lesions noted Lesions: no lesions Rashes: no rashes Trauma: no lacerations or abrasions Neuro CN's II-XII intact bilaterally, no focal motor deficits, no sensory deficits noted and deep tendon reflexes 2+ bilaterally Psych mental status grossly normal and affect normal Patient seen and examined prior to discharge. Physical assessment as noted above. Patient is stable for discharge with follow up recommendations as noted above. This patient was seen by DOTTIE Otero under the supervision of Dr. Lacy. Weight / BMI Weight Weight: 159 lb Body Mass Index (BMI) 25.7 ABG / Lab / Microbiology Data Result Diagrams: 12/13/21 20:49 12/13/21 13:25 Laboratory: Laboratory Results - last 24 hr 12/13/21 20:49: Hgb 12.8 L, Hct 36.6 L Microbiology: Microbiology 12/13/21 13:40 Urine, Clean Catch Urine Culture - Preliminary GPC Poss Enterococcus sp 12/14/21 09:20 Nasal Secretion SARS-CoV-2 Antigen (Rapid) - Final 12/13/21 13:25 Stool Stool Occult Blood (YUKI) - Final Occult Blood Positive D/C Instructions Discharge Diet: Light diet - advance as tolerated Call your doctor if you observe: Shortness of breath, Dizziness, Chest pain and - (further blood per rectum) Meaningful Use Info Meaningful Use Diagnoses (Choose all that apply): None applicable Discharge Plan Admission Admit Date/Time: 12/13/21 16:15 Primary Reason for Your Visit: Blood per rectum Attending Provider: Toribio Lacy Primary Care Provider: Rupert Stein Discharge Orders/Prescriptions Prescriptions: New ciprofloxacin HCl 500 mg tablet 500 mg PO DAILY Qty: 10 RF: 0 metronidazole 500 mg tablet 500 mg PO Q12H 10 Days Qty: 20 RF: 0 mesalamine 400 mg capsule (with del rel tablets) 800 mg PO BID 56 Days Qty: 224 RF: 0 No Action NK RF: 0 Referrals / Follow Up: Raul Melvin MD [STAFF PHYSICIAN] - In 1 Week (Call for soonest appt) Erik Valentine DO [STAFF PHYSICIAN] - Within 2 Weeks Rupert Stein DO [Primary Care Provider] - In 1 Week Disposition Disposition (needs filled in before D/C Order can be placed): Home, Self Care Documented by User: Dr. Toribio Lacy MD 12/14/21 16:00 Providers Date of Admission: 12/13/21 Reason For Visit: RECTAL BLEEDING Medications at Discharge Home Medications NK 12/13/21 ciprofloxacin HCl 500 mg PO DAILY #10 tab 12/14/21 mesalamine 800 mg PO BID 56 Days #224 ea 12/14/21 metronidazole 500 mg PO Q12H 10 Days #20 tab 12/14/21 Hospital Course Operations None Summary of Care Provided Minutes Spent on Discharge: 40 Hospital Course: This patient was seen in conjunction with JOANNA Otero . I have independently interviewed and examined the patient and reviewed pertinent historical, laboratory, and other data. Please refer to DOTTIE Otero note for details of this patient's presentation, findings, and recommendations. I have reviewed DOTTIE Otero note and concur with documented findings. In brief, patient is an 81-year-old gentleman in relatively good health for his age who presented with melenic stools with abdominal bloating. CT of the abdomen obtained on admission was consistent with proctitis. Admitted to regular nursing floor for further management ?GI was consulted patient underwent colonoscopy performed by Dr. Valentine. Gerardo ngs are as below Impressions : - Preparation of the colon was fair. - Mucosal ulceration. Biopsied. - Moderate diverticulosis in the recto-sigmoid colon, in the sigmoid colon and in the descending colon. There was no evidence of diverticular bleeding. - The examined portion of the ileum was normal. Reviewed DC recommendations including obtaining CT angio of the abdomen to rule out thrombosis. 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 Referral was placed to vascular surgery on discharge. Physical Examination: GENERAL: cooperative HEENT: Atraumatic; EYES; Anicteric, Normal Conjunctiva NECK; supple, normal thyroid, RESPIRATORY: Diminished to auscultation CARDIOVASCULAR: Regular S1 S2, GI: soft, normoactive bowel sounds, : No Renal angle tenderness; EXTREMITIES: No edema, no clubbing, MUSCULOSKELETAL: no muscle wasting NEURO: Awake; no lateralizing signs. SKIN: No Rash PSYCH; Flat affect Assessment: 1. Lower GI bleed 2. Proctitis 3. Hearing impairment 4. Advanced age Hospital course; as documented above Total time spent by myself and the advanced practice practitioner evaluating patient, reviewing labs, subsequent management decisions, discussion with patient as well as other providers 40 minutes ( 25 of which was spent by myself) ABG / Lab / Microbiology Data Result Diagrams: 12/13/21 20:49 12/13/21 13:25 Discharge Plan Admission Admit Date/Time: 12/13/21 16:15 Primary Reason for Your Visit: Blood per rectum Attending Provider: Toribio Lacy Primary Care Provider: Rupert Stein Discharge Orders/Prescriptions Prescriptions: New ciprofloxacin HCl 500 mg tablet 500 mg PO DAILY Qty: 10 RF: 0 metronidazole 500 mg tablet 500 mg PO Q12H 10 Days Qty: 20 RF: 0 mesalamine 400 mg capsule (with del rel tablets) 800 mg PO BID 56 Days Qty: 224 RF: 0 No Action NK RF: 0 Referrals / Follow Up: Raul Melvin MD [STAFF PHYSICIAN] - In 1 Week (Call for soonest appt) Erik Valentine DO [STAFF PHYSICIAN] - Within 2 Weeks Rupert Stein DO [Primary Care Provider] - In 1 Week Disposition Disposition (needs filled in before D/C Order can be placed): Home, Self Care Charges/Coding Visit Charges Inpatient E&M: 25424 Disch Hosp Hospital Course Imaging Results Imaging Results: 12/14/21 14:48 CTA Chst, Abd, Pel W and/or WO [CT] Urgent Consultations Consultations: Consultations 12/13/21 16:32 Consult: Gastroenterology Routine Consulting Provider: [facility] Reason for Consult: rectal bleeding EMERGENT Consult: No Notified: Yes Date Notified: 12/13/21 Time Notified: 16:17 Method of Notification: Verbal Operations None
--- NOTE | 2021-12-14 16:14 | PCA ---
This [employer] called Dr. Melvin's office to make an appointment they asked if I could call back and they would be open till 5pm. I called back and the office was closed and does not open back up until friday.
== END 2021-12-14 17:28 | disposition home or self-care (01) ==
LOC: ED 15:53 → MS3 16:07
PROVIDERS: Internal Medicine Gastroenterology; Admitting Provider Internal Medicine; Emergency Provider Emergency Medicine; PCP Preventive Medicine Occupational Medicine; Visit Provider Internal Medicine
PROC: 0DJD8ZZ Inspection of Lower Intestinal Tract, Via Natural or Artificial Opening Endoscopic (ICD-10-PCS; CPT 45378; principal; 2021-12-14 12:55)
DX: K62.5 Hemorrhage of anus and rectum (principal); M06.9 Rheumatoid arthritis, unspecified; D69.6 Thrombocytopenia, unspecified; E86.0 Dehydration; D64.9 Anemia, unspecified; K62.89 Other specified diseases of anus and rectum; R14.0 Abdominal distension (gaseous); H91.90 Unspecified hearing loss, unspecified ear; E78.5 Hyperlipidemia, unspecified; K57.31 Diverticulosis of large intestine without perforation or abscess with bleeding; Z87.19 Personal history of other diseases of the digestive system; K63.3 Ulcer of intestine; R10.9 Unspecified abdominal pain
CPT/HCPCS: 45380; 36415; 71275; 74174; 74177; 80053; 81001; 82274; 83605; 85014; 85018; 85025; 87077; 87086; 87088; 87186; 87426; 88305; 88341; 88342; 96360; 96361; 99218; 99285; J7030; Q9967; A4216; G0378; J2405